=== PATIENT | female | born 1990 | race Caucasian/White ===

== ENCOUNTER 2018-04-04 11:00 | Emergency (ER) | payer MEDICAID, SELFPAY ==
[2018-04-04 11:13] VITALS: BP 130/72; PULSE 99; RESP 18; TEMP 37; O2SAT 97
--- NOTE | 2018-04-04 11:21 | W.ED.GENAD ---
Discharge Plan Disposition Patient Disposition: HOME Condition: Fair Discharge Details Chief Complaint: Urinary Clinical Impression: UTI (urinary tract infection) Primary Care Provider: NONE,NONE ED Provider: Silvana Bolaños Home Meds and New Rx's Prescriptions: New cephalexin [Keflex] 500 mg capsule 500 mg PO BID Qty: 10 RF: 0 Continue buprenorphine-naloxone [Suboxone] 12-3 mg Film 1 film SUBLINGUAL DAILY RF: 0 Discharge Instructions Instructions: Urinary Tract Infection in Women (ED) Additional Instructions: Encourage hydration. Please take Keflex as prescribed for urinary tract infection. Pyridium as prescribed to help with symptomatic management. If you develop fever/chills, back pain, nausea/vomiting or other new/worsening symptoms please seek care urgently once again. I have asked her pediatric care coordinator help facilitate follow-up with primary care as well as QUANTITATIVE RESEARCH ANALYST to discuss contraceptive measures. Discharge Data Discharge Date/Time-TO BE ENTERED AT DEPARTURE: 04/04/18 11:59 Medical Decision Making Patient 27-year-old female presenting today with chief complaint of dysuria. She reports that she first noted foul-smelling urine approximately 1 month ago. However, 1 week ago she began noting dysuria, increased frequency and urgency. She denies any back pain. States she has had some low subjective fevers at home, none were in recent history. Denies any nausea, vomiting or diarrhea. No change in bowel habits. She denies any dyspareunia, vaginal discharge. States that she has had one sexual contact since being last tested for STDs. States she did have unprotected sex, we will run a UPT at this time. We will also obtain a urinalysis. UPT negative Urine is positive for nitrates and leukocyte esterase. Patient be treated for urinary tract infection. Encourage hydration. We discussed new/worsening symptoms once he care urgently once again. I also advised to follow-up with QUANTITATIVE RESEARCH ANALYST as well as primary care. She does not have either of these, we will have our pediatric care coordinator help facilitate follow-up appointments. Reinforced safe sex practices. all of her questions and concerns were addressed and she is in agreement with this plan HPI General Mode of arrival: ambulatory. Date/Time Provider Initiated Documentation: 04/04/18 11:18. Limitations to Documentation: no limitations. Information obtained by: patient and family. History of Present Illness 27 year old F presents to the emergency department with the chief complaint of dysurea, described as moderate, Quality is described as burning (with urination), and is localized to the abdomen. Patient reports no radiation. Patient started experiencing this week(s) (3-4) and it has been constant. No relieving factors improve symptom(s), No exacerbating factors reported . Patient notes fever/chills (reports subjective fever a few weeks ago, none recently); denies chest pain, cough, loss of appetite, nausea/vomiting, rash and shortness of breath. Patient did receive the following treatments prior to arrival, none Related Data Home Medications Medication Instructions Recorded Confirmed buprenorphine-naloxone [Suboxone] 1 film SUBLINGUAL DAILY 04/04/18 04/04/18 cephalexin [Keflex] 500 mg PO BID #10 cap 04/04/18 Previous Rx's Medication Instructions Recorded cephalexin [Keflex] 500 mg PO BID #10 cap 04/04/18 Allergies Allergy/AdvReac Type Severity Reaction Status Date / Time No Known Allergies Allergy Unverified 04/04/18 11:37 General Stated Complaint: Urinary CLAU: 3 Review of Systems Constitutional Reports as per HPI and Denies headache(s) ENT Denies headache(s) Cardiovascular Reports as per HPI and Denies chest pain Respiratory Reports as per HPI and Denies cough Gastrointestinal Reports as per HPI, Reports abdominal pain (Low central abdominal pain associated with urination.), Denies change in stool character, Denies nausea and Denies vomiting Genitourinary Reports as per HPI, Denies abnormal menses, Reports hematuria, Reports urinary frequency, Denies genital pruritis, Denies genital lesions, Denies dyspareunia, Reports dysuria, Denies flank pain, Denies urinary incontinence, Reports urinary hesitancy, Reports urinary urgency, Denies vaginal discharge and Denies vaginal odor Musculoskeletal Denies back pain Integumentary/Breasts Denies rash Neurologic Denies headache(s) [facility]END[facility] TO [facility] Social History Smoking/Tobacco Use Status: Current every day Exam Const General: cooperative, healthy appearing, comfortable, no acute distress and well developed Nutritional Appearance: well nourished and overweight Orientation: alert and awake Resp Effort & Inspection: normal respiratory effort, able to speak in complete sentences and no respiratory distress Auscultation: clear to auscultation bilaterally Cardio Rate: regular rate Rhythm: regular rhythm Heart Sounds: S1 normal and S2 normal GI Inspection: normal to inspection, no abdominal wall ecchymosis, non-distended and no scars Palpation: soft, no hepatosplenomegaly, no aortic enlargement, not firm, no guarding, not rigid and nontender Auscultation: normal bowel sounds Back/Spine/Pelvis Back: no CVA tenderness Skin General skin exam: no rashes or lesions noted Neuro General: alert and awake Cognition: normal cognition Speech: speech normal Gait: normal gait Psych Appearance: grossly normal and well kempt Mental Status: mental status grossly normal Speech and Movement: speech and movement normal Course Vital Signs Temperature 37 C 04/04/18 11:13 Pulse 99 H 04/04/18 11:13 Respiratory Rate 18 04/04/18 11:13 Blood Pressure 130/72 04/04/18 11:13 Pulse Oximetry 97 04/04/18 11:13 Temperature 37 C 04/04/18 11:13 Temperature Source Temporal Artery Scan 04/04/18 11:13 Pulse 99 H 04/04/18 11:13 Respiratory Rate 18 04/04/18 11:13 Blood Pressure 130/72 04/04/18 11:13 Pulse Oximetry 97 04/04/18 11:13 Oxygen Delivery Method Room Air 04/04/18 11:13 Oxygen Flow Rate 0 04/04/18 11:13
[2018-04-04 11:30] LABS: Bilirubin Negative (Negative); Blood Small (Negative); Clarity Cloudy; Glucose Negative (Negative); Ketones Negative (Negative); Leukocyte Esterase Moderate (Negative); Nitrite Positive (Negative); Specific Gravity >= 1.030 (1.005-1.025); Urobilinogen 0.2 EU/dL (Up TO 0.2); pH 5.5 (5-8)
[2018-04-04 11:40] LABS: Bacteria Many HPF (Negative); WBC >50 HPF (0-5)
--- NOTE | 2018-04-04 11:40 | ED.GENADUL_ITS ---
Discharge Plan Disposition Patient Disposition: HOME Condition: Fair Discharge Details Chief Complaint: Urinary Clinical Impression: UTI (urinary tract infection) Primary Care Provider: NONE,NONE ED Provider: Silvana Bolaños Home Meds and New Rx's Prescriptions: New cephalexin [Keflex] 500 mg capsule 500 mg PO BID Qty: 10 RF: 0 Continue buprenorphine-naloxone [Suboxone] 12-3 mg Film 1 film SUBLINGUAL DAILY RF: 0 Discharge Instructions Instructions: Urinary Tract Infection in Women (ED) Additional Instructions: Encourage hydration. Please take Keflex as prescribed for urinary tract infection. Pyridium as prescribed to help with symptomatic management. If you develop fever/chills, back pain, nausea/vomiting or other new/worsening symptoms please seek care urgently once again. I have asked her pet care attendant help facilitate follow-up with primary care as well as [employer] to discuss contraceptive measures. Discharge Data Discharge Date/Time-TO BE ENTERED AT DEPARTURE: 04/04/18 11:59 Medical Decision Making Patient 27-year-old female presenting today with chief complaint of dysuria. She reports that she first noted foul-smelling urine approximately 1 month ago. However, 1 week ago she began noting dysuria, increased frequency and urgency. She denies any back pain. States she has had some low subjective fevers at home, none were in recent history. Denies any nausea, vomiting or diarrhea. No change in bowel habits. She denies any dyspareunia, vaginal discharge. States that she has had one sexual contact since being last tested for STDs. States she did have unprotected sex, we will run a UPT at this time. We will also obtain a urinalysis. UPT negative Urine is positive for nitrates and leukocyte esterase. Patient be treated for urinary tract infection. Encourage hydration. We discussed new/worsening symptoms once he care urgently once again. I also advised to follow-up with OB/ MEDICAL LOGISTICS SPECIALIST as well as primary care. She does not have either of these, we will have our pet care attendant help facilitate follow-up appointments. Reinforced safe sex practices. all of her questions and concerns were addressed and she is in agreement with this plan HPI General Mode of arrival: ambulatory . Date/Time Provider Initiated Documentation: 04/04/18 11:18 . Limitations to Documentation: no limitations . Information obtained by: patient and family . History of Present Illness 27 year old F presents to the emergency department with the chief complaint of dysurea, described as moderate, Quality is described as burning (with urination), and is localized to the abdomen. Patient reports no radiation. Patient started experiencing this week(s) (3-4) and it has been constant. No relieving factors improve symptom(s), No exacerbating factors reported . Patient notes fever/chills (reports subjective fever a few weeks ago, none recently); denies chest pain, cough, loss of appetite, nausea/vomiting, rash and shortness of breath. Patient did receive the following treatments prior to arrival, none Related Data Home Medications Medication Instructions Recorded Confirmed buprenorphine-naloxone [Suboxone] 1 film SUBLINGUAL DAILY 04/04/18 04/04/18 cephalexin [Keflex] 500 mg PO BID #10 cap 04/04/18 Previous Rx's Medication Instructions Recorded cephalexin [Keflex] 500 mg PO BID #10 cap 04/04/18 Allergies Allergy/AdvReac Type Severity Reaction Status Date / Time No Known Allergies Allergy Unverified 04/04/18 11:37 General Stated Complaint: Urinary CLAU: 3 Review of Systems Constitutional Reports as per HPI and Denies headache(s) ENT Denies headache(s) Cardiovascular Reports as per HPI and Denies chest pain Respiratory Reports as per HPI and Denies cough Gastrointestinal Reports as per HPI, Reports abdominal pain (Low central abdominal pain associated with urination.), Denies change in stool character, Denies nausea and Denies vomiting Genitourinary Reports as per HPI, Denies abnormal menses, Reports hematuria, Reports urinary frequency, Denies genital pruritis, Denies genital lesions, Denies dyspareunia, Reports dysuria, Denies flank pain, Denies urinary incontinence, Reports urinary hesitancy, Reports urinary urgency, Denies vaginal discharge and Denies vaginal odor Musculoskeletal Denies back pain Integumentary/Breasts Denies rash Neurologic Denies headache(s) [facility] Social History Smoking/Tobacco Use Status: Current every day Exam Const General: cooperative, healthy appearing, comfortable, no acute distress and well developed Nutritional Appearance: well nourished and overweight Orientation: alert and awake Resp Effort & Inspection: normal respiratory effort, able to speak in complete sentences and no respiratory distress Auscultation: clear to auscultation bilaterally Cardio Rate: regular rate Rhythm: regular rhythm Heart Sounds: S1 normal and S2 normal GI Inspection: normal to inspection, no abdominal wall ecchymosis, non-distended and no scars Palpation: soft, no hepatosplenomegaly, no aortic enlargement, not firm, no guarding, not rigid and nontender Auscultation: normal bowel sounds Back/Spine/Pelvis Back: no CVA tenderness Skin General skin exam: no rashes or lesions noted Neuro General: alert and awake Cognition: normal cognition Speech: speech normal Gait: normal gait Psych Appearance: grossly normal and well kempt Mental Status: mental status grossly normal Speech and Movement: speech and movement normal Course Vital Signs Temperature 37 C 04/04/18 11:13 Pulse 99 H 04/04/18 11:13 Respiratory Rate 18 04/04/18 11:13 Blood Pressure 130/72 04/04/18 11:13 Pulse Oximetry 97 04/04/18 11:13 Temperature 37 C 04/04/18 11:13 Temperature Source Temporal Artery Scan 04/04/18 11:13 Pulse 99 H 04/04/18 11:13 Respiratory Rate 18 04/04/18 11:13 Blood Pressure 130/72 04/04/18 11:13 Pulse Oximetry 97 04/04/18 11:13 Oxygen Delivery Method Room Air 04/04/18 11:13 Oxygen Flow Rate 0 04/04/18 11:13
[2018-04-04 11:41] LABS: C & S Indicated? Yes
--- NOTE | 2018-04-05 08:42 | PDOC.ERCMPRO ---
Care Management Progress Note 04/05-Silvana FRAGOSO requested assistance with establishing a PCP (Dr. Varma bakery demonstrator) no ED f/u needed. Silvana also requested a [facility] f/u in 1-2 weeks for contraceptive discussion. Referral faxed to [facility] and to [facility] this am.
== END 2018-04-04 11:59 | disposition home or self-care (01) ==
LOC: ER 12:07
PROVIDERS: Emergency Provider Physician Assistant
DX: N39.0 Urinary tract infection, site not specified (principal); B96.20 Unspecified Escherichia coli [E. coli] as the cause of diseases classified elsewhere; Z87.440 Personal history of urinary (tract) infections
CPT/HCPCS: 81025; 87077; 99283; 81003; 81015; 87086; 87186

== ENCOUNTER 2018-07-20 09:26 | Emergency (ER) | payer MEDICAID, SELFPAY ==
[2018-07-20 10:24] VITALS: BP 118/68; PULSE 87; RESP 18; TEMP 36.8; O2SAT 96
--- NOTE | 2018-07-20 10:52 | ED.GENADUL_ITS ---
Discharge Plan Disposition Patient Disposition: HOME Condition: Stable Discharge Details Chief Complaint: Sorethroat Clinical Impression: Acute viral syndrome Primary Care Provider: None,None ED Provider: Brian Montelongo Home Meds and New Rx's Prescriptions: New dexamethasone [dexamethasone] 4 MG tablet 8 mg PO DAILY Qty: 4 RF: 0 No Action buprenorphine-naloxone [Suboxone] 12-3 mg Film 1 film SUBLINGUAL DAILY RF: 0 cephalexin [Keflex] 500 mg capsule 500 mg PO BID Qty: 10 RF: 0 Discharge Instructions Instructions: Viral Syndrome (ED) Additional Instructions: 1. Drink plenty of fluids. 2. Continue all medications as prescribed. 3. Acetaminophen 1000mg every 4 hours (up to 5 time a day) and/or ibuprofen 600mg every 6 hours as needed for fever or pain. 4. Decadron 8 mg once a day starting tomorrow. 5. Albuterol 2-4 puffs every 4 hours as needed for cough/difficulty breathing. Return to the Emergency Department (ED) if your condition worsens, does not improve as expected, or for ANY other concerns. Specifically, return if you have new or uncontrolled pain, worsening fever, difficulty breathing, vomiting, or are unable to drink fluids. Referrals: Juan Newman [Emergency Nurse] - Medical Decision Making 27-year-old who presents with 2 days of a progressive viral syndrome (pharyngitis, congestion, productive cough, mild dyspnea, and generalized myalgias). Nonfocal exam except for congestion and a prolonged expiratory phase on auscultation. Tolerating liquids in the ED. Discussed management options and patient felt capable of maintaining oral intake without IV fluids. Treated in the ED with Decadron and an albuterol MDI. Discharged with the MDI and a prescription for Decadron. Discharged with a plan for aggressive oral hydration, OTC analgesia, and Decadron daily for the next 2 days. Pt evaluated immediately prior to discharge with improved symptoms, normal vital signs, and tolerating PO. The patient feels appropriate for discharge home. Discussed clinical/diagnostic findings. Discharged with a clear plan for outpatient follow up. Given usual and customary return instructions prior to discharge. Medical Records Medical records reviewed: Yes I reviewed the patient's medical records. 19-year-old woman with an unremarkable past medical history who presents with 2- day throat pain, cough/congestion, difficulty wheezing, and generalized myalgias. Denies headache, neck pain/stiffness, palpitations or chest pain. Has had a cough productive of greenish sputum. Has mild abdominal pain local ized to left lower quadrant which is familiar in location and nature to her from other episodes. Denies atypical leg swelling or pain. Has been tolerating oral intake otherwise has taken no OTC analgesics/antipyretics. HPI General Date/Time Provider Initiated Documentation: 07/20/18 10:06 . Related Data Home Medications Medication Instructions Recorded Confirmed buprenorphine-naloxone [Suboxone] 1 film SUBLINGUAL DAILY 04/04/18 04/04/18 cephalexin [Keflex] 500 mg PO BID #10 cap 04/04/18 dexamethasone 8 mg PO DAILY #4 tab 07/20/18 Previous Rx's Medication Instructions Recorded cephalexin [Keflex] 500 mg PO BID #10 cap 04/04/18 dexamethasone 8 mg PO DAILY #4 tab 07/20/18 Allergies Allergy/AdvReac Type Severity Reaction Status Date / Time No Known Allergies Allergy Unverified 04/04/18 11:37 General Stated Complaint: Sorethroat CLAU: 4 Review of Systems Review of Systems All systems are reviewed and are unremarkable except as noted in HPI and below: CONSTITUTIONAL: no fevers/chills, weakness, no change in appetite with good liquid intake. EYES: no change in vision HEENT: no throat pain or difficulty swallowing; no neck pain CARDIOVASCULAR: no chest pain, palpitations, leg swelling, or diaphoresis RESPIRATORY: Mild cough productive of greenish sputum with associated chest congestion and mild dypnea GASTROINTESTINAL: LLQ pain (chronic recurrent), melena, nausea/emesis GENITOURINARY: no dysuria, flank pain, MUSCULOSKELETAL: no back pain, myalgias, arthralgias INTEGUMENTARY: no rash, no wounds NEUROLOGIC: no headache, focal weakness, difficulty with speech, numbness PSYCHIATRIC: no confusion, no anciety HEME: no easy bruising or bleeding ALLERGIC: no urticaria PFSH Social History Smoking and Tabacco status: Current every day Exam Narrative Exam Narrative: Nursing note and vital signs have been reviewed and noted. GENERAL: alert, active, no acute distress, well -hydrated, well-nourished; ill in appearance HEENT: atraumatic/normocephalic, PERRLA, EOMI, conjunctiva clear, external ears/canals normal, nasal mucosa normal NECK: supple, full range of motion, no mass, normal lymphadenopathy, no thyromegaly CARDIOVASCULAR: RRR, no murmurs, nl pulses, no edema PULMONARY: Mild tachypnea with a prolonged expiratory phase, no audible wheezing or stridor, nl breath sounds with no focal deficit. no chest wall tenderness ABDOMEN: soft, mild, focal LLQ tenderness, non-distended, no mass, no organomegaly EXTREMITY: normal muscle tone, all joints with FROM, no deformity or tenderness NUERO: gross motor exam normal, normal stance and gait, PSYCH: alert and oriented, SKIN: no exanthem Course Vital Signs Temperature 98.3 F 07/20/18 10:24 Pulse 87 07/20/18 10:24 Respiratory Rate 18 07/20/18 10:24 Blood Pressure 118/68 07/20/18 10:24 Pulse Oximetry 96 07/20/18 10:24 Temperature 98.3 F 07/20/18 10:24 Temperature Source Temporal Artery Scan 07/20/18 10:24 Pulse 87 07/20/18 10:24 Respiratory Rate 18 07/20/18 10:24 Respiratory Effort 07/20/18 10:33 Blood Pressure 118/68 07/20/18 10:24 Blood Pressure Position Sitting 07/20/18 10:24 Pulse Oximetry 96 07/20/18 10:24 Oxygen Delivery Method Room Air 07/20/18 10:24 Oxygen Flow Rate 0 07/20/18 10:24 Pain Level 7 07/20/18 10:24
== END 2018-07-20 11:00 | disposition home or self-care (01) ==
LOC: ER 11:08
PROVIDERS: Emergency Provider Emergency Medicine; PCP Family Medicine
DX: B34.9 Viral infection, unspecified (principal); F17.210 Nicotine dependence, cigarettes, uncomplicated
CPT/HCPCS: 99283

== ENCOUNTER 2019-11-07 02:25 | Outpatient (CLI) | payer MEDICAID, SELFPAY ==
--- NOTE | 2019-11-07 | DI.US_ITS ---
EXAM: US OB 2-3 TRIMESTER CLINICAL HISTORY: Z34.82, SURVEY TECHNIQUE: Ultrasound performed using standard protocol. COMPARISON: No exams were available for comparison FINDINGS: Ob ultrasound was performed utilizing 2nd to 3rd trimester protocol. biometry is consistent wi th gestational age of 27 weeks 6 days and EDC of 01/31/2020. Placenta is anterior with no placenta p revia. There is a normal quantity of amniotic fluid. anomaly screen is within normal limits as per the attached checklist. heart rate is 147 BPM. IMPRESSION: DATA REPOSITORY:
== END 2019-11-07 02:45 ==
PROVIDERS: Visit Provider Family Medicine
DX: Z34.92 Encounter for supervision of normal pregnancy, unspecified, second trimester (principal); Z3A.27 27 weeks gestation of pregnancy
CPT/HCPCS: 76805

== ENCOUNTER 2020-01-23 15:37 | Outpatient (CLI) | payer MEDICAID, SELFPAY ==
[2020-01-25 08:00] LABS: COVID-19 RT-PCR Result NEGATIVE (Negative)
== END 2020-01-23 15:57 ==
PROVIDERS: Visit Provider Obstetrics & Gynecology
DX: Z01.818 Encounter for other preprocedural examination (principal)
CPT/HCPCS: U0003

== ENCOUNTER 2020-01-25 06:46 | Inpatient (IN) | payer MEDICAID, SELFPAY ==
[2020-01-25 06:01] VITALS: BP 116/72; PULSE 83; RESP 16; TEMP 36.3; O2SAT 100
[2020-01-25 07:10] LABS: HCT 33.3 % (36.0-46.0); HGB 11.1 g/dL (11.2-15.7); MCH 30.2 pg (27.0-33.0); MCHC 33.3 % (32.0-36.0); MCV 90.5 fL (80-95); MPV 10.7 fL (8.0-11.0); Platelet Count 329 10^3/uL (130-400); RBC 3.68 10^6/uL (3.93-5.22); RDW 12.3 % (11.7-14.6); RDW-SD 40.2 fL; WBC 11.47 10^3/uL (4.4-10.8)
[2020-01-25] MEDS: Lactated Ringers 1,000 ML 125 ML IV ×3 (07:31→18:51)
[2020-01-25] MEDS: FentaNYL/ROPIvacaine 2 mcg/ml and 0.1% 200 ML CADD Cassette EP ×2 (08:12→18:51)
[2020-01-25] MEDS: ceFAZolin 2 GM/50 ML BAG IVPB (08:14)
[2020-01-25] MEDS: Bupivacaine 0.25% Pres-Free 30 ML VIAL (09:04)
[2020-01-25] MEDS: Ketorolac 30 MG/ML VIAL IVP ×3 (11:41→23:40)
[2020-01-25] MEDS: LORazepam 2 MG/ML VIAL 0.5 MG IVP (11:46)
[2020-01-25] MEDS: ACETAMINOPHEN 1,000 MG/100 ML BTL 400 MG IVPB ×2 (11:47→17:34)
[2020-01-25] MEDS: Lactated Ringers 1,000 ML 120 ML IV (12:00)
--- NOTE | 2020-01-25 17:55 | ROE_ITS ---
Date of service: 01/25/20 Time of Service: 17:55 Operative Note Operative Note DATE OF PROCEDURE: 01/25/20 PRE-OP DIAGNOSIS: 39 weeks prior section x3 POST-OP DIAGNOSIS: same PROCEDURE: Repeat low transverse section SURGEON: Rohan Andrews ASSISTING SURGEON: Loretta Sanchez ANESTHESIA: spinal and epidural ESTIMATED BLOOD LOSS: 500 PATHOLOGY: none sent COMPLICATIONS: None Patient was transported to: floor Patient's condition: stable Findings: Delivered a vigorous liveborn male in footling breech presentation. Procedure Description: The patient was taken to the operating room and after combined spinal/epidural anesthesia the patient was placed in supine position with a left lateral tilt. The patient was prepped and draped in usual sterile manner. A Pfannenstiel incision was made through the previous incision and sharp dissection was carried down to the underlying layer fascia. The incision had been infiltrated with 20 cc of 1% plain lidocaine solution. There was extensive scarring through the previous incision. Dissection was carried down to the underlying layer fascia. The fascia was incised in the midline with the scalpel. The fascia was dissected off the underlying layer of rectus muscles using both blunt and sharp dissection. There was omentum that was adhered to the fascia from her previous section. The rectus muscles were divided along the linea alba using both blunt and sharp dissection. Extensive adhesions were encountered between the uterus to the anterior abdominal wall and also involving the bladder. These were taken down with blunt and sharp dissection. There were omental and uterine adhesions to the intra-abdominal wall on the superior aspect of the uterus but these did not interfere with the ability to reach the lower segment and were not taken down. The lower uterine segment was incised in a transverse manner with a scalpel and the incision was extended laterally in either direction with bandage scissors. Amniotomy was made with a hemostat and amniotic fluid was clear. The fetus was found in footling breech presentation and delivered atraumatically. The mouth and nose were suctioned. The cord was clamped and cut. The was handed off to the waiting traffic maintenance officer. A cord segment was held for toxicology screen for the . The placenta was manually extracted. The uterus was cleared of all clots and debris. The hysterotomy was closed with a running locked stitch of #1 chromic. A second imbricating layer #1 chromic in a Lambert stitch was used to complete the second layer. Several [id number] suture of 3-0 Vicryl were used for hemostasis along the hysterotomy. The rectus muscles and peritoneum were reapproximated en bloc with interrupted sutures of #1 chromic. The subfascial space was thoroughly inspected and was noted to be hemostatic. The fascia was closed with a running stitch of 0 Vicryl. The subcutaneous tissues were closed with interrupted sutures of 3-0 Vicryl and puja were used to close the skin. The procedure was concluded at this point. Sponge, lap, and needle counts were correct at the conclusion of the procedure. The patient tolerated the procedure well and was transferred to the floor in stable condition.
[2020-01-25] MEDS: LORazepam 2 MG/ML VIAL 1 MG IVP (18:51)
[2020-01-25] MEDS: Normal Saline Flush 10 ML SYR IV (23:40)
[2020-01-26] MEDS: Lactated Ringers 1,000 ML 125 ML IV ×3 (02:46→19:00)
[2020-01-26] MEDS: FentaNYL/ROPIvacaine 2 mcg/ml and 0.1% 200 ML CADD Cassette EP ×2 (04:05→12:28)
[2020-01-26] MEDS: Ketorolac 30 MG/ML VIAL IVP ×2 (06:00→21:48)
[2020-01-26] MEDS: ACETAMINOPHEN 1,000 MG/100 ML BTL 400 MG IVPB ×4 (06:00→19:00)
[2020-01-26] MEDS: Buprenorphine 2 MG SUBLINGUAL TABLET 4 MG SL (07:34)
--- NOTE | 2020-01-26 07:56 | W.PM.PROGNOT ---
Date of Service Date of service: 01/26/20 Time of Service: 08:02 Subjective Subjective Interval history since last seen: Patient seen and examined this morning. Her complaints are that of incisional burning and lower back discomfort. Her epidural is in place and functioning well. Her Schuler catheter is also in place. Vital signs are stable. She has had a good appetite and minimal nausea. She has not been ambulatory at this point due to unsteady gait with her epidural. We will comanage this with anesthesia in hopes of allowing her better ambulation of maintaining good pain control. Anticipation would be to transition to her to oral pain medication which would include nonsteroidal anti-inflammatories along with her Suboxone. Exam Const General: cooperative Nutritional Appearance: average body habitus Other: Somewhat sleepy Eyes General: appearance normal, both eyes and all related structures Resp Effort & Inspection: normal respiratory effort Cardio Rate: regular rate Rhythm: regular rhythm GI Inspection: normal to inspection Skin General skin exam: no rashes or lesions noted Neuro General: patient alert and patient oriented x3 Extrem Other: PAS stockings in place and functioning Objective Objective Clinical Data: Vital Signs Temperature 97.3 F L 01/25/20 06:01 Pulse 83 01/25/20 06:01 Pulse Rhythm Regular 01/25/20 06:01 Respiratory Rate 16 01/25/20 06:01 Respiratory Effort Non-Labored 01/25/20 06:01 Respiratory Depth Normal 01/25/20 06:01 Respiratory Pattern Normal 01/25/20 06:01 Blood Pressure 116/72 01/25/20 06:01 Pulse Oximetry 100 01/25/20 06:01 Oxygen Delivery Method Room Air 01/25/20 06:01 Oxygen Flow Rate 0 01/25/20 06:01 Pain Level 10 01/25/20 11:41 Intake & Output 01/25/20 01/25/20 01/26/20 11:59 23:59 11:59 Intake Total 1050 / 2369.917 1319.917 / 2369.917 1089.583 / 1089.583 Output Total 650 / 650 Balance 400 / 7549.456 6308.917 / 1104.976 9701.583 / 1089.583 Weight 198 lb 10.184 oz Intake: IV 1050 / 2369.917 1319.917 / 2369.917 1089.583 / 1089.583 Output: Urine 150 / 150 Estimated Blood Loss 500 / 500 Other: Urine Color Yellow Straw Urine Appearance Clear Laboratory Results WBC 11.47 10^3/uL (4.4-10.8) H 01/25/20 06:58 RBC 3.68 10^6/uL (3.93-5.22) L 01/25/20 06:58 Hgb 11.1 g/dL (11.2-15.7) L 01/25/20 06:58 Hct 33.3 % (36.0-46.0) L 01/25/20 06:58 MCV 90.5 fL (80-95) 01/25/20 06:58 MCH 30.2 pg (27.0-33.0) 01/25/20 06:58 MCHC 33.3 % (32.0-36.0) 01/25/20 06:58 RDW 12.3 % (11.7-14.6) 01/25/20 06:58 Plt Count 329 10^3/uL (130-400) 01/25/20 06:58 MPV 10.7 fL (8.0-11.0) 01/25/20 06:58 Patient ABO/Rh A Positive 01/25/20 06:58 Antibody Screen Negative 01/25/20 06:58
[2020-01-26 08:00] VITALS: BP 118/75; PULSE 78; RESP 20; TEMP 36.8; O2SAT 95
--- NOTE | 2020-01-26 10:35 | PDOC.ANES ---
Date of service: 01/26/20 Time of Service: 09:44 Anesthesia Note Report Anesthesia Note: Daily epidural management. Pain level 6/10. Patient alert and sitting up in bed nursing baby. Leg strength has returned but instructed patient not to get out of bed alone. Discussed frequent ambulation in the pool with nurse's assist with patient and RN. OK to remove bejarano but will need to assess urinary status every 2 hours. Encouraged coughing and deep breathing. VSS. Plan to continue epidural infusion with no changes today. Patient agrees with plan.
--- NOTE | 2020-01-26 15:18 | PDOC.ANES ---
Date of service: 01/26/20 Time of Service: 15:18 Anesthesia Note Report Anesthesia Note: Notified by KWAKU Arnold that epidural dressing was loosening. I decided to change the dressing, catheter was almost completely out, only [address]. Remainder of catheter removed, blue tip intact. Back washed and band-aid applied. Dr. Sanchez notified. Other pain modalities will be initiated.
[2020-01-26] MEDS: Docusate Sodium 100 MG CAP PO (16:16)
[2020-01-26] MEDS: Ibuprofen 800 MG TAB PO (16:17)
[2020-01-26] MEDS: Normal Saline Flush 10 ML SYR IV (21:48)
[2020-01-27] MEDS: ACETAMINOPHEN 1,000 MG/100 ML BTL 400 MG IVPB ×2 (00:04→05:46)
[2020-01-27] MEDS: Ibuprofen 800 MG TAB PO (04:14)
[2020-01-27] MEDS: Buprenorphine 2 MG SUBLINGUAL TABLET 4 MG SL (05:46)
[2020-01-27] MEDS: Normal Saline Flush 10 ML SYR IV ×2 (08:30→09:43)
[2020-01-27] MEDS: Ketorolac 30 MG/ML VIAL IVP (09:44)
--- NOTE | 2020-01-27 11:03 | W.PM.PROGNOT ---
Date of Service Date of service: 01/27/20 Time of Service: 11:03 Assessment and Plan Assessment and plan (1) Status post repeat low transverse section: Start date: 01/27/20 Start time: 11:06 Status: Acute Assessment and plan: post op day # 2 doing well. Will d/c home. Follow up with Dr. Brito as scheduled MAT per primary care Subjective Subjective Patient reports: feels better, pain is less and voiding w/o difficulty Exam Const General: cooperative Orientation: alert and oriented x3 Eyes General: appearance normal, both eyes and all related structures Resp Effort & Inspection: normal respiratory effort Auscultation: clear to auscultation bilaterally, rales, rhonchi and wheezes Cardio Rate: regular rate Rhythm: regular rhythm Heart Sounds: S1 normal, S2 normal and no murmurs GI Inspection: normal to inspection Palpation: soft, not firm and no guarding Skin Other: incision clean, dry, in tact Extrem General: no clubbing, cyanosis or edema, no calf tenderness and no pedal edema Objective Objective Clinical Data: Vital Signs Temperature 98.2 F 01/26/20 08:00 Pulse 78 01/26/20 08:00 Pulse Rhythm Regular 01/25/20 06:01 Respiratory Rate 20 01/26/20 08:00 Respiratory Effort Non-Labored 01/25/20 06:01 Respiratory Depth Normal 01/25/20 06:01 Respiratory Pattern Normal 01/25/20 06:01 Blood Pressure 118/75 01/26/20 08:00 Pulse Oximetry 95 01/26/20 08:00 Oxygen Delivery Method Room Air 01/26/20 08:00 Oxygen Flow Rate 0 01/26/20 08:00 Pain Level 10 01/25/20 11:41 Intake & Output 01/26/20 01/26/20 01/27/20 11:59 23:59 11:59 Intake Total 2160.416 / 3360.416 1200 / 3360.416 100 / 100 Balance 2160.416 / 3360.416 1200 / 3360.416 100 / 100 Intake: IV 2160.416 / 3360.416 1200 / 3360.416 100 / 100 Laboratory Results WBC 11.47 10^3/uL (4.4-10.8) H 01/25/20 06:58 RBC 3.68 10^6/uL (3.93-5.22) L 01/25/20 06:58 Hgb 11.1 g/dL (11.2-15.7) L 01/25/20 06:58 Hct 33.3 % (36.0-46.0) L 01/25/20 06:58 MCV 90.5 fL (80-95) 01/25/20 06:58 MCH 30.2 pg (27.0-33.0) 01/25/20 06:58 MCHC 33.3 % (32.0-36.0) 01/25/20 06:58 RDW 12.3 % (11.7-14.6) 01/25/20 06:58 Plt Count 329 10^3/uL (130-400) 01/25/20 06:58 MPV 10.7 fL (8.0-11.0) 01/25/20 06:58 Patient ABO/Rh A Positive 01/25/20 06:58 Antibody Screen Negative 01/25/20 06:58
--- NOTE | 2020-01-27 11:14 | W.PM.DS.N ---
Date of service: 01/27/20 Time of Service: 11:14 DS: Diagnosis Discharge Diagnosis (1) Status post repeat low transverse section: Status: Acute Asessment and Plan: Post op day 2. Doing well D/C home Discharge Plan Disposition Patient Disposition: HOME Condition: Good Discharge Details Reason For Visit: C SECTION Admit Date/Time: 01/25/20 06:46 Admit Provider: Rohan Andrews Attending Provider: Rohan Andrews Primary Care Provider: None,None Hospital Course Hospital Course: Patient had a repeat section with uncomplicated post op course. D/C hme on day #2 Home Meds and New Rx's Prescriptions: New ibuprofen [IBU] 800 mg tablet 800 mg PO Q8H Qty: 30 RF: 1 docusate sodium [Colace] 100 mg capsule 100 mg PO DAILY Qty: 20 RF: 0 acetaminophen [Tylenol Extra Strength] 500 mg tablet 500 mg PO Q6H PRNQty: 30 RF: 0 Plus 29 mg iron- 1 mg tablet 1 tab PO DAILY Qty: 30 RF: 0 Continued prenat.vits,carine,[id number]-ezpt-[id number] Tablet 1 tab PO DAILY RF: 0 ondansetron HCl 4 mg tablet 4 mg PO Q8H RF: 0 buprenorphine HCl 8 mg tablet, sublingual 8 mg SL DAILY RF: 0 buprenorphine HCl 2 mg tablet, sublingual 4 mg SL DAILY RF: 0 polyethylene glycol 3350 17 gram/dose powder 17 g PO DAILY PRNRF: 0 Discharge Instructions Instructions: (DC) Activity:: Activity as Tolerated Equipment/Supplies:: No Equipment Needed Diet:: Normal Diet Discharge Orders Discharge Orders: Discharge Order (Routine); Ordered 01/27/20 Ordered By: Loretta Sanchez DS: Summary Summary Time spent discussing smoking cessation with patient: 3 to 10 minutes Status at Discharge Functional status at discharge: independent ambulation Overall status at discharge: patient is back to baseline Mental Status: mental status grossly normal Speech and Movement: speech and movement normal Mood: congruent mood Affect: normal affect Exam Narrative Exam Narrative: See progress note from today Psych Mental Status: mental status grossly normal Speech and Movement: speech and movement normal Mood: congruent mood Affect: normal affect DS: Data Vitals/I&O Vitals and I&O: Vital Signs Temperature 98.2 F 01/26/20 08:00 Pulse 78 01/26/20 08:00 Pulse Rhythm Regular 01/25/20 06:01 Respiratory Rate 20 01/26/20 08:00 Respiratory Effort Non-Labored 01/25/20 06:01 Respiratory Depth Normal 01/25/20 06:01 Respiratory Pattern Normal 01/25/20 06:01 Blood Pressure 118/75 01/26/20 08:00 Pulse Oximetry 95 01/26/20 08:00 Oxygen Delivery Method Room Air 01/26/20 08:00 Oxygen Flow Rate 0 01/26/20 08:00 Pain Level 10 01/25/20 11:41 Intake & Output 01/26/20 01/26/20 01/27/20 11:59 23:59 11:59 Intake Total 2160.416 / 3360.416 1200 / 3360.416 100 / 100 Balance 2160.416 / 3360.416 1200 / 3360.416 100 / 100 Intake: IV 2160.416 / 3360.416 1200 / 3360.416 100 / 100 PFSH Medical History Anxiety (Chronic) GERD (gastroesophageal reflux disease) (Chronic) Hepatitis C (Chronic) Severe opioid use disorder on maintenance therapy (Acute) Hx of Heroin and THC. recovery for 2 years Surgical History Hx of section (Chronic) x3 Hx of tonsillectomy (Chronic) Status post repeat low transverse section (Acute) Social History Smoking/Tobacco Use Status: Current every day Drug use: Daily Do you feel safe in your relationship?: Yes
== END 2020-01-27 11:29 | disposition home or self-care (01) | DRG 787 ==
LOC: PDS 06:47 → OBS 11:25
PROVIDERS: Admitting Provider Obstetrics & Gynecology; Visit Provider Obstetrics & Gynecology
PROC: 10D00Z1 Extraction of Products of Conception, Low, Open Approach (ICD-10-PCS; CPT 59514; principal; 2020-01-25 07:30)
DX: O34.211 Maternal care for low transverse scar from previous cesarean delivery (principal); O99.324 Drug use complicating childbirth; F11.20 Opioid dependence, uncomplicated; O98.42 Viral hepatitis complicating childbirth; Z37.0 Single live birth; Z3A.39 39 weeks gestation of pregnancy; O32.1XX0 Maternal care for breech presentation, not applicable or unspecified; O99.334 Smoking (tobacco) complicating childbirth; O99.62 Diseases of the digestive system complicating childbirth; N99.4 Postprocedural pelvic peritoneal adhesions; F17.210 Nicotine dependence, cigarettes, uncomplicated; K21.9 Gastro-esophageal reflux disease without esophagitis; B19.20 Unspecified viral hepatitis C without hepatic coma; Z67.10 Type A blood, Rh positive
CPT/HCPCS: 59514; 36415; 85027; 86850; 86900; 86901; 99232; 99238; J0131; J0690; J1885; J2001; J2060; J2250; J2370; J2405; J2704; J3010; J3490